=== PATIENT | female | born 1945 | race Two or more races ===

== ENCOUNTER 2025-01-26 14:10 | Emergency (ER) | payer OTHER ==
[~2025-01-26] VITALS: Ht 170.2 cm; Wt 81.8 kg
[2025-01-26 14:15] VITALS: BP 118/51; PULSE 46; RESP 16; TEMP 97.7; O2SAT 95
--- NOTE | 2025-01-26 16:38 | ED.PDOC ---
Altered Mental Status HPI Comments HPI: Caty 79 y.o female who was a visitor for an ED patient had a syncopal episode at bedside. Patient c/o dizziness prior to having a witnessed vasovagal episode. Patient was placed in a wheelchair and requested to stay with family member at bedside. Per nurse at bedside, patient became pale and unresponsive leading to syncope. Initial Vitals BP: 118/51 HR: 46 RR: 16 O2 Sat: 95% RA Temp: 97.7F Past Medical history: Denies Past Surgical history: Denies Social History: Denies smoking, ETOH, and drug use. Allergies: NKDA `` HPI: Poor Historian. REVIEW OF SYSTEMS: CONSTITUTIONAL: Denies acute: fever, diaphoresis, chills, HEAD: Denies acute: headache, photophobia Eyes: Denies acute: Double vision, vision loss, eye pain, eye discharge. EARS: Denies acute: tinnitus, hearing loss, ear discharge, ear pain, THROAT: Denies acute: sore throat, swelling, difficulty swallowing , pain with swallowing, change in voice. NECK: Denies acute: neck pain, neck swelling, stiff neck. HEART: Denies acute : chest pain, palpitations, LUNGS: Denies acute: SOB, wheezing, cough, hemoptysis ABDOMEN: Denies acute: abdominal pain, Nausea, Vomiting, diarrhea, melena , hematemesis, hematochezia SKIN: Denies acute: rash, redness, lesions, itchiness. EXTREMITIES: Denies acute: calf pain, numbness, tingling, weakness, denies pain in extremity. Denies acute: Low back pain. Neuro: Denies acute: focal neurological deficit, motor or sensory focal neurological deficit, tremors, seizure like activity, confusion, change in mental status, loss of bowel or bladder function, cauda equina like symptoms. : Denies acute: dysuria, hematuria, flank pain, increase in urinary frequency. PSYCH: Denies acute: hallucination, suicidal ideation, homicidal ideation. FEMALE: Denies acute: abnormal vaginal bleeding, foul odor, unusual discharge. PHYSICAL EXAM: General: ---no-----acute distress, awake and alert. Head: normocephalic, atraumatic. No raccoon's eyes, no melendez sign. Neck: supple, trachea is midline, no swelling. Throat: Normal phonation. Eyes:, no erythema, no purulent discharge, no proptosis, no icterus. Lungs: no apparent respiratory distress, Able to speak in full sentences. Abdomen: non tender to palpation, non distended, soft, no guarding, no rebound, + bowel sounds. Neuro: Awake, Alert, oriented to name, self, situation, follows commands GCS=15. Speech is normal. Skin: no petechia, no purpura, no cyanosis, non-pale, not jaundice. Lower extremities: --no - Pitting edema no deformity, no focal swelling, no calf TTP. Makes eye contact. moves all four extremities. Face: no apparent facial droop. PERRLA, EOM-I CN 2-12 are grossly intact, No nystagmus. ED COURSE: DISCLAIMER: This medical document was created using an electronic medical record system with voice recognition software and computerized dictation system. Although this document has been carefully reviewed, there might still be some phonetic and typographical errors. Occasional wrong-word or "sound-alike" substitutions may have occurred due to the inherent limitations of voice recognition software. These areas are purely typographical due to imperfections of the software programs and do not reflect any compromise in the patient's medical care. Please read the chart carefully and recognize, using context, where these substitutions have occurred. 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 Was a procedure done?: No Differential Diagnosis (ALOC) Differential Diagnosis: Dehydration, Hypoglycemia, DKA, Encephalopathy, Meningitis, Sepsis, Hypoxemia, Seizure, Closed Head Injury, CVA, Mass Lesion, SAH, Drug Overdose, ETOH Intoxication, Heart Failure, Renal Failure X-Ray, Labs, Meds, VS Vital Signs Date Time Temp Pulse Resp B/P (MAP) Pulse Ox O2 Delivery O2 Flow Rate FiO2 01/26/25 14:15 97.7 46 16 118/51 95 97.7 01/26/25 14:13 46 Time of 1ST Reevaluation: 15:00 Reevaluation 1ST: Improved Patient Education/Counseling: Diagnosis, Treatment Family Education/Counseling: Diagnosis, Treatment Comments Patient eloped Departure 1 Departure Time of Disposition: 16:34 Impression: Primary Impression: Syncope and collapse Additional Impression: Eloped from emergency department Disposition: 07 LEFT AWOL/ELOPED Condition: Stable Additional Instructions: pt eloped Discharged With: Self Critical Care Note Critical Care Time?: No I personally scribed for RENNY ANDRADE DO ([email or web address]) on 01/26/25 at 16:37. Electronically submitted by Sara Webster ([facility]). I personally scribed for RENNY ANDRADE DO ([email or web address]) on 01/26/25 at 20:21. Electronically submitted by Sara Webster ([facility]). RENNY ANDRADE DO Jan 26, 2025 16:37
--- NOTE | 2025-01-29 10:52 | ECG ---
[facility] Test Date: 2025-01-26 Test Time: 14:13:58 Pat Name: ZEYAD GAN Department: ED Room: Gender: F Lay Out Technician: LOUISE : 1945 Requested By: EMERGENCY EMERGENCY Order Number: [id number] Reading MD: Rakan Borja Measurements Intervals Edison Rate: 46 P: 84 [place]: 181 QRS: 25 QRSD: 105 T: 62 QT: 560 QTc: 490 Interpretive Statements Sinus bradycardia Nonspecific T abnormalities, lateral leads Borderline prolonged QT interval Electronically Signed On 02-01-2025 8:30:08 PST by Rakan Borja Please click the below link to view image of tracing.
== END 2025-01-26 16:32 | disposition left against medical advice (07) ==
LOC: ER 14:10
DX: R55 Syncope and collapse (principal)
CPT/HCPCS: 93005